=== PATIENT | female | born 1990 | race Caucasian/White ===

== ENCOUNTER 2018-10-09 16:22 | Emergency (ER) | payer SELFPAY ==
[2018-10-09 16:27] VITALS: BP 124/68; PULSE 77; RESP 18; TEMP 36.7; O2SAT 98
--- NOTE | 2018-10-09 16:32 | W.ED.GENAD ---
Discharge Plan Disposition Patient Disposition: OTHER Condition: Stable Discharge Details Chief Complaint: GenMedical Clinical Impression: Back pain Primary Care Provider: None,None ED Provider: Lindsey Rojas Medical Decision Making Patient 27-year-old female presenting today with chief complaint of right-sided back pain that radiates down the posterior aspect of the right extremity to the knee. She denies any trauma. Reports the pain has been consistent for the past 2 weeks. Denies any fever/chills. No change in bowel or bladder habits. Denies any sensory deficits. Reports that she has had sciatica historically and that this feels very similar. Patient is new to the area, does not have a primary care provider. Patient also has history of syphilis which was treated several years ago as well as a supraumbilical hernia secondary to vaginal delivery 7 years ago. On exam, patient appears comfortable. She is grossly tender along the right side of her back. No midline tenderness or paraspinal tenderness. Pain was only elicited with flexing forward. No pain with extension or rotational movements. Neuro exam is intact, no saddle paresthesias, reflexes are equal bilaterally. Patient has good strength in her lower extremities and is ambulating with a mildly antalgic gait. Pain is maximal over the SI joint and under the right buttock. I am concerned it is a recurrent episode of her sciatica secondary to muscle spasm given the findings on exam. Plan to treat with a lidocaine patch as well as Tylenol and oral Valium for muscle relaxation. Patient did take ibuprofen prior to arrival. Patient finished her menses today. Patient given oral valium, tylenol and lidoderm patch applied. Patient frustrated by not having a room available to stay in and needing to wait. Department currently in surge. She eloped without letting myself or nursing staff know. Was able to ambulate well. She was cognitively appropriate. Patient had been requesting a primary care when I saw her initially, have asked our care attendant to help with establishing PCP with prompt follow up for her pain as she did not have a discharge plan. Had discussed with her, prior to her elopment, referral to PT. HPI General Mode of arrival: ambulatory. Date/Time Provider Initiated Documentation: 10/09/18 16:31. Limitations to Documentation: no limitations. Information obtained by: patient and RN notes reviewed. History of Present Illness 27 year old F presents to the emergency department with the chief complaint of right sided back pain, described as moderate, with intensity rated at 8. Quality is described as aching, and is localized to the back. Patient extremity (radiates into RLE, ends at knee). Patient started experiencing this week(s) (2) and it has been constant. Movement improves symptom(s), Immoblization worsens symptoms . Patient notes denies chest pain, cough, fever/chills, headaches, loss of appetite, nausea/vomiting, rash, shortness of breath, syncope and weakness. Patient did receive the following treatments prior to arrival, NSAID Related Data Allergies Allergy/AdvReac Type Severity Reaction Status Date / Time Penicillins Allergy Severe Anaphylaxsi Unverified 10/09/18 16:31 s General Stated Complaint: GenMedical LANG: 3 Review of Systems Constitutional Reports as per HPI, Denies chills, Denies fever(s), Denies frequent falls, Denies headache(s) and Denies weakness ENT Denies headache(s) and Denies neck pain Cardiovascular Reports as per HPI Respiratory Reports as per HPI and Denies cough Musculoskeletal Reports as per HPI, Denies abnormal gait, Reports back pain, Denies myalgias, Denies deformity, Reports limited range of motion (limited flexion), Denies muscle weakness, Denies neck pain, Denies numbness, Reports radiating pain into limb and Denies tingling Integumentary/Breasts Reports as per HPI, Denies rash and Denies wounds Neurologic Reports as per HPI, Denies abnormal movements, Denies abnormal gait, Denies frequent falls, Denies headache(s), Denies numbness, Reports radicular pain, Denies tingling, Denies paresthesias and Denies weakness Exam Const General: cooperative, healthy appearing, comfortable, no acute distress, well developed and well groomed Nutritional Appearance: average body habitus and well nourished Orientation: alert and awake Resp Effort & Inspection: normal respiratory effort, able to speak in complete sentences and no respiratory distress Auscultation: clear to auscultation bilaterally Cardio Rate: regular rate Rhythm: regular rhythm Heart Sounds: S1 normal and S2 normal GI Inspection: normal to inspection, no abdominal wall ecchymosis, no edema and non-distended Palpation: soft, no hepatosplenomegaly, not firm, no guarding, hernia (supraumbilical palpable defect, no entrapment) and nontender Auscultation: normal bowel sounds Back/Spine/Pelvis Back: no CVA tenderness Cervical Spine: normal cervical lordosis and cervical ROM normal Thoracic/Lumbar Spine: No thoraco-lumbar ROM normal (pain with forward flexion, otherwise full and nonpainful), straight leg raise negative bilaterally, No paraspinal tenderness, No thoracic spinal tenderness and No lumbar spinal tenderness Pelvis: no pain with anterior-posterior compression and no pain with lateral compression Sacroiliac joints: on the right tender to palpation and on the left nontender Sacrum: no swelling and no tenderness Coccyx: no tenderness Back/spine/pelvis image: 1. area of tenderness Skin General skin exam: no rashes or lesions noted Lesions: no lesions Rashes: no rashes Trauma: no lacerations or abrasions Neuro General: alert and awake Cognition: normal cognition Speech: speech normal Gait: normal gait Motor: muscle tone normal throughout, strength 5/5 throughout and no fasciculations Sensory Exam: no sensory deficits noted (no saddle paresthesias) DTR's: Rt Patellar: 2+, Lt Patellar: 2+, Rt Ankle: 2+ and Lt Ankle: 2+ Plantar Reflexes: Downgoing: bilateral Psych Appearance: grossly normal and well kempt Mental Status: mental status grossly normal Speech and Movement: speech and movement normal Course Vital Signs Temperature 36.7 C 10/09/18 16:27 Pulse 77 10/09/18 16:27 Respiratory Rate 18 10/09/18 16:27 Blood Pressure 124/68 10/09/18 16:27 Pulse Oximetry 98 10/09/18 16:27 Temperature 36.7 C 10/09/18 16:27 Temperature Source Skin 10/09/18 16:27 Pulse 77 10/09/18 16:27 Respiratory Rate 18 10/09/18 16:27 Blood Pressure 124/68 10/09/18 16:27 Pulse Oximetry 98 10/09/18 16:27 Oxygen Delivery Method Room Air 10/09/18 16:27 Oxygen Flow Rate 0 10/09/18 16:27 Pain Level 8 10/09/18 16:27
[2018-10-09] MEDS: diazePAM 5 MG TAB PO (17:24)
[2018-10-09] MEDS: Acetaminophen 500 MG TAB 1000 MG PO (17:24)
[2018-10-09] MEDS: Lidocaine 5% Patch 1 PATCH TP (17:33)
--- NOTE | 2018-10-09 18:44 | ED.GENADUL_ITS ---
Discharge Plan Disposition Patient Disposition: OTHER Condition: Stable Discharge Details Chief Complaint: GenMedical Clinical Impression: Back pain Primary Care Provider: None,None ED Provider: Lindsey Rojas Medical Decision Making Patient 27-year-old female presenting today with chief complaint of right-sided back pain that radiates down the posterior aspect of the right extremity to the knee. She denies any trauma. Reports the pain has been consistent for the past 2 weeks. Denies any fever/chills. No change in bowel or bladder habits. Denie s any sensory deficits. Reports that she has had sciatica historically and that this feels very similar. Patient is new to the area, does not have a primary care provider. Patient also has history of syphilis which was treated several years ago as well as a supraumbilical hernia secondary to vaginal delivery 7 years ago. On exam, patient appears comfortable. She is grossly tender along the right side of her back. No midline tenderness or paraspinal tenderness. Pain was only elicited with flexing forward. No pain with extension or rotational movements. Neuro exam is intact, no saddle paresthesias, reflexes are equal bilaterally. Patient has good strength in her lower extremities and is ambulating with a mildly antalgic gait. Pain is maximal over the SI joint and under the right buttock. I am concerned it is a recurrent episode of her sciatica secondary to muscle spasm given the findings on exam. Plan to treat with a lidocaine patch as well as Tylenol and oral Valium for muscle relaxation. Patient did take ibuprofen prior to arrival. Patient finished her menses today. Patient given oral valium, tylenol and lidoderm patch applied. Patient frustrated by not having a room available to stay in and needing to wait. Department currently in surge. She eloped without letting myself or nursing staff know. Was able to ambulate well. She was cognitively appropriate. Patient had been requesting a primary care when I saw her initially, have asked our care tech to help with establishing PCP with prompt follow up for her pain as she did not have a discharge plan. Had discussed with her, prior to her elopment, referral to PT. HPI General Mode of arrival: ambulatory . Date/Time Provider Initiated Documentation: 10/09/18 16:31 . Limitations to Documentation: no limitations . Information obtained by: patient and RN notes reviewed . History of Present Illness 27 year old F presents to the emergency department with the chief complaint of right sided back pain, described as moderate, with intensity rated at 8. Quality is described as aching, and is localized to the back. Patient extremity (radiates into RLE, ends at knee). Patient started experiencing this week(s) (2) and it has been constant. Movement improves symptom(s), Immoblization worsens symptoms . Patient notes denies chest pain, cough, fever/chills, headaches, loss of appetite, nausea/vomiting, rash, shortness of breath, syncope and weakness. Patient did receive the following treatments prior to arrival, NSAID Related Data Allergies Allergy/AdvReac Type Severity Reaction Status Date / Time Penicillins Allergy Severe Anaphylaxsi Unverified 10/09/18 16:31 s General Stated Complaint: GenMedical LANG: 3 Review of Systems Constitutional Reports as per HPI, Denies chills, Denies fever(s), Denies frequent falls, Denies headache(s) and Denies weakness ENT Denies headache(s) and Denies neck pain Cardiovascular Reports as per HPI Respiratory Reports as per HPI and Denies cough Musculoskeletal Reports as per HPI, Denies abnormal gait, Reports back pain, Denies myalgias, Denies deformity, Reports limited range of motion (limited flexion), Denies muscle weakness, Denies neck pain, Denies numbness, Reports radiating pain into limb and Denies tingling Integumentary/Breasts Reports as per HPI, Denies rash and Denies wounds Neurologic Reports as per HPI, Denies abnormal movements, Denies abnormal gait, Denies frequent falls, Denies headache(s), Denies numbness, Reports radicular pain, Denies tingling, Denies paresthesias and Denies weakness Exam Const General: cooperative, healthy appearing, comfortable, no acute distress, well developed and well groomed Nutritional Appearance: average body habitus and well nourished Orientation: alert and awake Resp Effort & Inspection: normal respiratory effort, able to speak in complete sentences and no respiratory distress Auscultation: clear to auscultation bilaterally Cardio Rate: regular rate Rhythm: regular rhythm Heart Sounds: S1 normal and S2 normal GI Inspection: normal to inspection, no abdominal wall ecchymosis, no edema and non-distended Palpation: soft, no hepatosplenomegaly, not firm, no guarding, hernia (suprau mbilical palpable defect, no entrapment) and nontender Auscultation: normal bowel sounds Back/Spine/Pelvis Back: no CVA tenderness Cervical Spine: normal cervical lordosis and cervical ROM normal Thoracic/Lumbar Spine: No thoraco-lumbar ROM normal (pain with forward flexion, otherwise full and nonpainful), straight leg raise negative bilaterally, No paraspinal tenderness, No thoracic spinal tenderness and No lumbar spinal tenderness Pelvis: no pain with anterior-posterior compression and no pain with lateral compression Sacroiliac joints: on the right tender to palpation and on the left nontender Sacrum: no swelling and no tenderness Coccyx: no tenderness Back/spine/pelvis image: 1. area of tenderness Skin General skin exam: no rashes or lesions noted Lesions: no lesions Rashes: no rashes Trauma: no lacerations or abrasions Neuro General: alert and awake Cognition: normal cognition Speech: speech normal Gait: normal gait Motor: muscle tone normal throughout, strength 5/5 throughout and no fasciculations Sensory Exam: no sensory deficits noted (no saddle paresthesias) DTR's: Rt Patellar: 2+, Lt Patellar: 2+, Rt Ankle: 2+ and Lt Ankle: 2+ Plantar Reflexes: Downgoing: bilateral Psych Appearance: grossly normal and well kempt Mental Status: mental status grossly normal Speech and Movement: speech and movement normal Course Vital Signs Temperature 36.7 C 10/09/18 16:27 Pulse 77 10/09/18 16:27 Respiratory Rate 18 10/09/18 16:27 Blood Pressure 124/68 10/09/18 16:27 Pulse Oximetry 98 10/09/18 16:27 Temperature 36.7 C 10/09/18 16:27 Temperature Source Skin 10/09/18 16:27 Pulse 77 10/09/18 16:27 Respiratory Rate 18 10/09/18 16:27 Blood Pressure 124/68 10/09/18 16:27 Pulse Oximetry 98 10/09/18 16:27 Oxygen Delivery Method Room Air 10/09/18 16:27 Oxygen Flow Rate 0 10/09/18 16:27 Pain Level 8 10/09/18 16:27
--- NOTE | 2018-10-09 20:46 | NUR.NOTE ---
Nursing Note: Patient was seen by Provider and her medications were administered. She later eloped from the department complaining that she never saw a provider.
--- NOTE | 2018-10-10 09:25 | PDOC.ERCMPRO ---
Care Management Progress Note 10/10-Olivia presented to the ED last evening for right sided back pain. She eloped at 1842. Please see provider note. This CM reached out to Olivia this morning. Called telephone number listed in EMR but the message did not state her name so this CM left no message.
== END 2018-10-09 18:42 | disposition other institution (70) ==
PROVIDERS: Emergency Provider Physician Assistant
DX: M54.5 Low back pain (principal)
CPT/HCPCS: 99283